=== PATIENT | female | born 2000 | race African-American/Black ===

== ENCOUNTER 2023-09-20 11:12 | Emergency (ER) | payer MEDICAID ==
[~2023-09-20] VITALS: Ht 157.5 cm; Wt 132.4 kg
[2023-09-20 12:03] VITALS: O2SAT 99
[2023-09-20] MEDS ORDERED: IBUP-2029 MT (14:12)
[2023-09-20 14:30] VITALS: BP 145/90; PULSE 80; RESP 18; TEMP 98.4
== END 2023-09-20 14:31 | disposition home or self-care (01) ==
LOC: ER 11:12
DX: M25.561 Pain in right knee (principal); Z98.890 Other specified postprocedural states; V49.9XXA Car occupant (driver) (passenger) injured in unspecified traffic accident, initial encounter; Y93.89 Activity, other specified; Y92.89 Other specified places as the place of occurrence of the external cause; Y99.8 Other external cause status
CPT/HCPCS: 73560; 99283; Z7610 ×2; L1830

== ENCOUNTER 2023-12-13 16:43 | Emergency (ER) | payer MEDICAID ==
[~2023-12-13] VITALS: Ht 167.6 cm; Wt 90.0 kg
[~2023-12-13 16:43] MED LIST: IBUP-2029 MT
[2023-12-13 17:05] VITALS: O2SAT 98
[2023-12-13 17:37] VITALS: TEMP 98.4; O2SAT 100
[2023-12-13] MEDS ORDERED: KETOROLAC 15MG/ML VIAL IM ONE (19:15)
[2023-12-13 19:39] VITALS: BP 131/92; PULSE 80; RESP 16
[2023-12-13] MEDS: IBUPROFEN 600MG TABLET PO ONE (19:39)
[2023-12-13] MEDS ORDERED: NAPR-1176 MT (20:51)
[2023-12-13] MEDS ORDERED: LIDO700A15 TP (20:51)
== END 2023-12-13 20:00 | disposition home or self-care (01) ==
LOC: ER 16:43
DX: M79.672 Pain in left foot (principal)
CPT/HCPCS: 99282